=== PATIENT | male | born 1950 | race Caucasian/White ===

== ENCOUNTER 2020-03-29 12:21 | Outpatient (CLI) | payer MEDICARE, SELFPAY ==
[2020-03-29 13:21] LABS: Basophils # 0.1 10^3/uL (0.0-0.1); Basophils % 0.7 %; Eosinophils # 0.2 10^3/uL (0.0-0.8); Eosinophils % 1.9 %; Hematocrit 47.9 % (42.0-52.0); Hemoglobin 15.7 g/dL (11.7-16.6); Lymphocytes # 2.2 10^3/uL (0.8-4.8); Lymphocytes % 26.5 %; Mean Corpuscular HGB Conc 32.8 g/dL (30.0-36.0); Mean Corpuscular Hemoglobin 31.5 pg (28.0-34.0); Mean Corpuscular Volume 96.2 fL (80-94); Mean Platelet Volume 10.7 fL (7.4-10.4); Monocytes # 0.6 10^3/uL (0.2-0.9); Monocytes % 7.3 %; Neutrophils # 5.21 10^3/uL (1.8-7.7); Neutrophils % 63.2 %; Nucleated Red Blood Cells % 0 %; Platelet Count 194 10^3/cmm (130-400); Red Blood Count 4.98 10^6/uL (4.1-5.3); Red Cell Distribution Width 11.8 % (12.1-15.1); White Blood Count 8.2 10^3/uL (4.0-10.0)
--- NOTE | 2020-03-29 13:30 | XR_ITS ---
WS: [id number] Exam: XR chest 2V* [id number] Date/Time of Exam: 03/29/2020 1:30 PM Reason For Exam: HX OF RENAL CELL CARCINOMA Comparison 01/29/2017. The lungs are clear. Heart size is normal. The mediastinum and bony thorax are unremarkable. Neurosti mulator leads are noted in the lower thoracic spinal canal. XR/XR chest 2V* [id number] IMPRESSION: 1. No acute cardiopulmonary finding. No change.
--- NOTE | 2020-03-29 13:30 | CT_ITS ---
WS: [id number] CT ABDOMEN PELVIS TECHNIQUE: Noncontrast CT of the abdomen and contrast-enhanced CT of the abdomen and pelvis with mary nal and sagittal reformatted images. CLINICAL INFORMATION: hx of renal cell carcinoma COMPARISON: CT and ultrasound . Prior CT DLP: 2951.[address] scans at [facility] use at least one of these dose optimization techniques: automat ed exposure control; mA and/or kV adjustment per patient size (includes targeted exams where dose is matched to clinical indication); or iterative reconstruction. FINDINGS: Prior postoperative changes right inferior pole partial nephrectomy. No evidence of recurrent disease in this location. Normal bilateral renal parenchymal enhancement. No hydronephrosis. Adrenal glands are normal. Diffuse fatty infiltration of the liver. Normal spleen. Normal GE junction. Lung bases are well aerat ed. Normal pancreas. Normal caliber abdominal aorta. Mild aortic calcification. Calcified prostate. Normal sigmoid colon. No evidence of high-grade small or large bowel obstruction. No adenopathy in th e abdomen or pelvis. Right HOWIE. Spinal stimulator. Left common iliac and external iliac stent. 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 Stable postoperative changes lower pole right kidney partial nephrectomy. N o evidence of recurrent disease. 2. Normal bilateral renal parenchymal enhancement. No hydronephrosis. 3. No adenopathy in the abdomen or pelvis. 4. Diffuse fatty infiltration of the liver. 5. Chronic biconcave compression L2 vertebral body with vertebroplasty changes . 6. Left common iliac and external iliac stent.
[2020-03-29 13:38] LABS: Alanine Aminotransferase 21 U/L (0-41); Albumin Level 4.2 g/dL (3.5-5.2); Alkaline Phosphatase 94 IU/L (40-130); Anion Gap 15.9 (5-19); Aspartate Amino Transferase 16 U/L (0-40); Blood Urea Nitrogen 12 mg/dL (8-23); Calcium 8.9 mg/dL (8.5-10.5); Carbon Dioxide 28 mmol/L (22-29); Chloride 94 mmol/L (98-107); Glomerular Filtration Rate 95.8 mL/min (90-130); Glucose 295 mg/dL (65-115); Osmolality Calculated 289 mOsm/kg (285-295); Potassium 3.9 mmol/L (3.5-5.1); Sodium 134 mmol/L (136-145); Total Bilirubin 0.5 mg/dL (0.15-1.2); Total Protein 7.2 g/dL (6.6-8.7)
[2020-03-29] MEDS: iohexol 300 mg/mL 100 mL Btl IV (14:40)
== END 2020-03-29 12:22 | disposition home or self-care (01) ==
LOC: RAD 12:28
PROVIDERS: Visit Provider Urology
DX: Z85.528 Personal history of other malignant neoplasm of kidney (principal); K76.0 Fatty (change of) liver, not elsewhere classified; S32.020A Wedge compression fracture of second lumbar vertebra, initial encounter for closed fracture; X58.XXXA Exposure to other specified factors, initial encounter
CPT/HCPCS: 36415; 71046; 74178; 80053; 81003; 85025

== ENCOUNTER → 2022-04-19 10:45 | Outpatient (BNVA) | payer MEDICARE, SELFPAY | PROVIDERS: Visit Provider Internal Medicine Cardiovascular Disease | DX: I11.0 Hypertensive heart disease with heart failure (principal); I50.32 Chronic diastolic (congestive) heart failure; I73.9 Peripheral vascular disease, unspecified; E78.00 Pure hypercholesterolemia, unspecified; Z98.890 Other specified postprocedural states; Z87.891 Personal history of nicotine dependence; Z79.82 Long term (current) use of aspirin | CPT/HCPCS: 99214 ==

== ENCOUNTER 2022-05-23 13:50 | Outpatient (CLI) | payer MEDICARE, SELFPAY ==
--- NOTE | 2022-05-23 14:15 | USCV_ITS ---
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 Resting CASH 0.9 on the right side. Mild to moderate plaque in the left iliac artery with a patent stented segment Mild to moderate diffuse plaques are noted in the femoral and popliteal arteries Resting CASH 0.9 on the left side CONCLUSIONS 1. Resting CASH of 0.9 bilaterally suggesting mild peripheral artery disease. 2. Mild to moderate diffuse plaque in the iliac, femoral and popliteal arteries bilaterally 3. Patent stented segment of the left iliac artery. No similar previous studies are available for comparison Dr Liz Hernandez MD [facility] (Electronically Signed) Final Date: 25 May 2022 18:46 S
--- NOTE | 2022-05-23 15:00 | USCV_ITS ---
Ricky Grimes Age: 71 Gender: M : 1950 Exam Date: 05/23/2022 14:05 Ordering Phys: Liz Hernandez MD ([email or web address]) Technologist: CT Exam Location: [facility] [place] Indication: stenosis/stent Risk Factors: Previous Vascular Surgery: Right Brachial BP: / Left Brachial BP: / Right Left Velocity (cm/s) Spectral Plaque Velocity (cm/s) Spectral Plaque Syst/Diast Broadening Syst/Diast Broadening 100.40/19.70 Prox CCA 106.20/ 24.60 123.00/24.60 Mid CCA 91.70 / 24.70 130.20/26.00 Distal CCA 76.40 / 19.10 133.10/30.60 Prox ICA 78.70 / 22.90 109.70/33.00 Mid ICA 81.80 / 22.20 117.00/31.40 Distal ICA 101.10/ 29.40 162.20 ECA 53.50 1.02 ICA/CCA 0.95 Antegrade Vertebral Antegrade 57.10/ 15.70 cm/s 89.40/ 21.00 cm/s Bi Subclavian Bi 150.7 148.5 0 0 FINDINGS Moderate heterogenous plaques at the right bifurcation and proximal internal carotid artery Minimal plaque at the left bifurcation with the patent stented proximal segment of the internal carotid artery Antegrade flow in the vertebral arteries bilaterally. Normal Doppler flow velocities in the subclavian and external carotid arteries Intimal thickening and minimal plaques in the common carotid arteries bilaterally CONCLUSIONS Moderate heterogenous plaques at the right bifurcation and proximal internal carotid artery with velocity elevation, consistent with 50 to 69% stenosis. Widely patent, stented segment of the proximal ICA on the left side with no evidence of in-stent stenosis No significant stenosis in the subclavian or vertebral arteries, based on the above findings Dr Liz Hernandez MD [facility] (Electronically Signed) Final Date: 30 May 2022 21:50 S
== END 2022-05-23 13:51 | disposition home or self-care (01) ==
PROVIDERS: Visit Provider Internal Medicine Cardiovascular Disease
DX: I65.21 Occlusion and stenosis of right carotid artery (principal); I73.9 Peripheral vascular disease, unspecified; Z98.62 Peripheral vascular angioplasty status
CPT/HCPCS: 93880; 93925

== ENCOUNTER → 2022-10-25 11:11 | Outpatient (BNVA) | payer MEDICARE, SELFPAY | PROVIDERS: Visit Provider Internal Medicine Cardiovascular Disease | DX: I11.0 Hypertensive heart disease with heart failure (principal); I50.32 Chronic diastolic (congestive) heart failure; E78.00 Pure hypercholesterolemia, unspecified; Z98.890 Other specified postprocedural states; I73.9 Peripheral vascular disease, unspecified; I65.29 Occlusion and stenosis of unspecified carotid artery; Z87.891 Personal history of nicotine dependence | CPT/HCPCS: 99214 ==

== ENCOUNTER 2023-04-24 10:05 | Outpatient (CLI) | payer MEDICARE, SELFPAY ==
[2023-04-24 10:38] LABS: Chol HDL Ratio 3.14 mg/dL (1.0-5.00); Cholesterol 116 mg/dL (0-200); HDL Cholesterol 37 mg/dL (60-100); LDL Cholesterol Calculated 39 mg/dL (50-129); LDL HDL Ratio 1.05 RATIO (0.00-3.22); Triglycerides 199 mg/dL (0-150)
== END 2023-04-24 10:06 | disposition home or self-care (01) ==
LOC: LAB 10:06
PROVIDERS: Visit Provider Internal Medicine Cardiovascular Disease
DX: E78.00 Pure hypercholesterolemia, unspecified (principal)
CPT/HCPCS: 36415; 80061

== ENCOUNTER → 2023-05-07 11:17 | Outpatient (BNVA) | payer MEDICARE, SELFPAY | PROVIDERS: Visit Provider Internal Medicine Cardiovascular Disease | DX: I11.0 Hypertensive heart disease with heart failure (principal); I50.32 Chronic diastolic (congestive) heart failure; E78.00 Pure hypercholesterolemia, unspecified; I73.9 Peripheral vascular disease, unspecified; I95.1 Orthostatic hypotension; I65.21 Occlusion and stenosis of right carotid artery; Z87.891 Personal history of nicotine dependence | CPT/HCPCS: 99214 ==

== ENCOUNTER 2023-07-23 10:27 | Outpatient (CLI) | payer MEDICARE, SELFPAY ==
--- NOTE | 2023-07-23 10:45 | USCV_ITS ---
Ricky Grimes Age: 72 Gender: M : 1950 Exam Date: 07/23/2023 10:35 Ordering Phys: Liz Hernandez MD ([email or web address]) Technologist: CT Exam Location: [facility] [place] Indication: stenosis, stent Risk Factors: Previous Vascular Surgery: Right Brachial BP: / Left Brachial BP: / Right Left Velocity (cm/s) Spectral Plaque Velocity (cm/s) Spectral Plaque Syst/Diast Broadening Syst/Diast Broadening 95.60/ 19.40 Prox CCA 118.20/ 29.40 119.60/23.70 Mid CCA 86.70 / 23.90 134.80/25.90 Distal CCA 107.90/ 29.80 168.40/24.60 Prox ICA 90.20 / 20.30 121.00/39.50 Mid ICA 81.20 / 21.00 127.20/43.30 Distal ICA 93.00 / 19.20 192.30 ECA 66.90 1.20 ICA/CCA 0.90 Antegrade Vertebral Antegrade 62.80/ 11.40 cm/s 87.70/ 14.80 cm/s Bi Subclavian Bi 119.8 168.4 0 0 FINDINGS Moderately heavy dense plaques of the right bifurcation and proximal internal carotid artery. Moderate dense plaques at the left bifurcation and proximal internal carotid artery Patent stent in the left ICA intimal thickening in the common carotid arteries bilaterally. Antegrade flow in the vertebral arteries bilaterally. Normal Doppler flow velocities in the external carotid, subclavian and vertebral arteries bilaterally CONCLUSIONS Moderately heavy dense plaques of the right bifurcation and proximal internal carotid artery with Doppler features, suggesting 50 to 69% stenosis. Moderate dense plaques at the left bifurcation with the Doppler features suggesting less than 50% stenosis. Patent stent in the proximal left with no evidence of stenosis Intimal thickening in the common carotid arteries bilaterally. Compared to the study from 05/24/2022, there may not be significant Dr Liz Hernandez MD [facility] (Electronically Signed) Final Date: 26 Jul 2023 08:57 S
== END 2023-07-23 10:28 | disposition home or self-care (01) ==
LOC: RAD 10:28
PROVIDERS: PCP Internal Medicine Cardiovascular Disease; Visit Provider Internal Medicine Cardiovascular Disease
DX: I65.23 Occlusion and stenosis of bilateral carotid arteries (principal); Z95.5 Presence of coronary angioplasty implant and graft
CPT/HCPCS: 93880

== ENCOUNTER 2023-11-08 06:00 | Outpatient (CLI) | payer MEDICARE, SELFPAY | END 2023-11-08 06:01 | disposition home or self-care (01) | LOC: RAD 11-11 06:17 | PROVIDERS: Visit Provider Nurse Practitioner Family | DX: I65.21 Occlusion and stenosis of right carotid artery (principal); I11.0 Hypertensive heart disease with heart failure; I50.32 Chronic diastolic (congestive) heart failure; F17.200 Nicotine dependence, unspecified, uncomplicated | CPT/HCPCS: 99214 ==

== ENCOUNTER 2023-12-03 08:09 | Outpatient (CLI) | payer MEDICARE, SELFPAY ==
--- NOTE | 2023-12-03 08:30 | CT_ITS ---
WS: [id number] CT ANGIOGRAM CAROTID ARTERIES HISTORY: right carotid stenosis, hx of left endartarectomy TECHNIQUE: CT angiogram is performed of the carotid arteries. During arterial injection imaging is ob tained from the skull base to the aortic arch in 1.25 mm imaging. Coronal and sagittal reformats are submitted, MIP imaging also reviewed. Additional multiplanar reformats of the carotid arteries are orozco bmitted. NASCET criteria utilized. All CT scans at [facility] use at least one of these dose optimization techniques: automated exposure control; mA and/or kV adjustment per patient size (includ es targeted exams where dose is matched to clinical indication); or iterative reconstruction. CONTRAST: Omnipaque 350; 100 mL IV. DLP: 264.31 mGy.cm COMPARISON: 01/07/2017, carotid ultrasound 07/23/2023 Right carotid: Common carotid artery: Origin of the RIGHT innominate artery is obscured by contrast injection bolus. The distal innominate artery is normal. Mild atherosclerotic plaque in the RIGHT cervical common car otid artery. Internal carotid artery: Increasing plaque and intimal thickening at the bifurcation. Stenosis estima imtiaz near 40%. Visually this does stenosis does appear closer to 50 to 60%. Stenosis has slightly prog ressed since 2017 with increasing plaque. External carotid artery: Patent. Left carotid: Common carotid artery: Arises normally from the aortic arch. No significant stenosis. Internal carotid artery: LEFT ICA stent is identified. Stent is patent without stenosis. There is a s mall amount of plaque at the proximal stent. External carotid artery: Patent. Right vertebral artery: Small caliber RIGHT vertebral artery is patent. Left vertebral artery: Mildly dominant vertebral artery with no stenosis. Subclavian arteries: Mild atherosclerotic plaque involving the subclavian arteries but no high-grade stenosis. Upper thorax: Normal. Thyroid gland: Normal. Osseous structures: Advanced degenerative changes in the cervical spine. Disc spaces are narrowed. Skull base: No acute findings. Mild mucoperiosteal thickening in the maxillary sinuses and in the demetrice al cavity. CT/CT angio neck [id number] IMPRESSION: 1. Increasing plaque in the proximal cervical RIGHT ICA near 50%. Stenosis deluca s not appear to progressed since the prior study although the plaque has. 2. Patent LEFT cervical carotid stent. 3. Dominant LEFT vertebral artery. Both vertebral arteries are patent.
[2023-12-03] MEDS: iohexol 350 mg/mL 500 mL Btl (per mL) IV (09:05)
== END 2023-12-03 08:10 | disposition home or self-care (01) ==
LOC: RAD 08:10
PROVIDERS: Visit Provider Nurse Practitioner Family
DX: Z98.890 Other specified postprocedural states (principal); I65.21 Occlusion and stenosis of right carotid artery
CPT/HCPCS: 70498

== ENCOUNTER → 2024-06-22 10:02 | Outpatient (BNVA) | payer MEDICARE, SELFPAY | PROVIDERS: Visit Provider Internal Medicine Cardiovascular Disease | DX: I11.0 Hypertensive heart disease with heart failure (principal); I50.32 Chronic diastolic (congestive) heart failure; E78.00 Pure hypercholesterolemia, unspecified; I95.1 Orthostatic hypotension; I73.9 Peripheral vascular disease, unspecified; I65.21 Occlusion and stenosis of right carotid artery; Z95.828 Presence of other vascular implants and grafts; Z79.01 Long term (current) use of anticoagulants; Z79.82 Long term (current) use of aspirin; Z87.891 Personal history of nicotine dependence | CPT/HCPCS: 99214 ==

== ENCOUNTER 2024-12-02 05:00 | Outpatient (CLI) | payer MEDICARE, SELFPAY | END 2024-12-02 05:01 | disposition home or self-care (01) | LOC: SOT 12-25 11:08 | PROVIDERS: Visit Provider Physician Assistant | DX: S62.667D Nondisplaced fracture of distal phalanx of left little finger, subsequent encounter for fracture with routine healing (principal); X58.XXXD Exposure to other specified factors, subsequent encounter | CPT/HCPCS: 99024; 99213 ==

== ENCOUNTER → 2024-12-04 10:49 | Outpatient (BNVA) | payer MEDICARE, SELFPAY | PROVIDERS: Visit Provider Emergency Medicine | DX: S62.637A Displaced fracture of distal phalanx of left little finger, initial encounter for closed fracture (principal); X58.XXXA Exposure to other specified factors, initial encounter; M19.042 Primary osteoarthritis, left hand | CPT/HCPCS: 73130 ==

== ENCOUNTER → 2024-12-11 10:13 | Outpatient (BNVA) | payer MEDICARE, SELFPAY | PROVIDERS: Visit Provider Physician Assistant | DX: S62.667A Nondisplaced fracture of distal phalanx of left little finger, initial encounter for closed fracture (principal); S61.319A Laceration without foreign body of unspecified finger with damage to nail, initial encounter; W31.2XXA Contact with powered woodworking and forming machines, initial encounter | CPT/HCPCS: 26720; 73130; 99203; 99213 ==

== ENCOUNTER → 2024-12-18 09:59 | Outpatient (BNVA) | payer MEDICARE, SELFPAY | PROVIDERS: Visit Provider Physician Assistant | DX: S62.667D Nondisplaced fracture of distal phalanx of left little finger, subsequent encounter for fracture with routine healing (principal); X58.XXXD Exposure to other specified factors, subsequent encounter | CPT/HCPCS: 73130 ==

== ENCOUNTER → 2025-01-05 09:51 | Outpatient (BNVA) | payer MEDICARE, SELFPAY | PROVIDERS: Visit Provider Physician Assistant | DX: S62.637D Displaced fracture of distal phalanx of left little finger, subsequent encounter for fracture with routine healing (principal); X58.XXXD Exposure to other specified factors, subsequent encounter; Z98.890 Other specified postprocedural states; I73.9 Peripheral vascular disease, unspecified; I65.21 Occlusion and stenosis of right carotid artery; I11.0 Hypertensive heart disease with heart failure; I50.23 Acute on chronic systolic (congestive) heart failure; E78.00 Pure hypercholesterolemia, unspecified; I95.1 Orthostatic hypotension; Z87.891 Personal history of nicotine dependence | CPT/HCPCS: 73130; 99024; 99213; 99214 ==